=== PATIENT | male | born 1995 | race Caucasian/White ===

== ENCOUNTER 2022-01-20 18:08 | Emergency (ER) | payer BC ==
[~2022-01-20] VITALS: Ht 177.8 cm; Wt 77.1 kg
--- NOTE | 2022-01-20 19:25 | NUR ---
2nd call made to page Dr beasley
[2022-01-20] MEDS ORDERED: HYDROCODONE/APAP 5-325MG TABLET ONE (19:50)
[2022-01-20] MEDS ORDERED: TDAP DIPH,PERTUSS,TET VAC/PF 0.5 ML DISP.SYRIN IM ONE (19:50)
[2022-01-20] MEDS: TDAP DIPH,PERTUSS,TET VAC/PF 0.5 ML DISP.SYRIN IM ONE (19:55)
[2022-01-20] MEDS: HYDROCODONE/APAP 5-325MG TABLET PO ONE (19:56)
[2022-01-20] MEDS ORDERED: HYDR-4209 PO ×2 (20:03→20:13)
--- NOTE | 2022-01-20 21:56 | NUR ---
Patient discharged to home in stable condition. Written and verbal after care instructions given. Patient verbalizes understanding of instructions. Stressed follow up or return to ER for worsening s/s. pt ambulated with steady gait. shoulder sling applied to right arm. AOx4. provided pt with xray disc
[2022-01-20 21:57] VITALS: BP 128/78
== END 2022-01-20 21:58 | disposition home or self-care (01) ==
LOC: ER 18:10
DX: S42.021A Displaced fracture of shaft of right clavicle, initial encounter for closed fracture (principal); V18.9XXA Unspecified pedal cyclist injured in noncollision transport accident in traffic accident, initial encounter; Y93.55 Activity, bike riding; Y92.410 Unspecified street and highway as the place of occurrence of the external cause; R51.9 Headache, unspecified
CPT/HCPCS: 70450; 71045; 73000; 90715; A4663